=== PATIENT | female | born 2000 ===

== ENCOUNTER 2023-12-04 13:14 | Emergency (ER) | payer OTHER ==
[~2023-12-04] VITALS: Ht 162.6 cm; Wt 81.4 kg
[2023-12-04 13:20] VITALS: TEMP 98.1
[2023-12-04] MEDS ORDERED: NS 1,000 ML IV ONE (14:15)
[2023-12-04 14:23] LABS: BASO % 0.2 % (0.0-2.0); EOS # 0.1 K/mm3 (0.0-0.7); EOS % 0.8 % (0.0-4.0); GRAN # 6.7 K/mm3 (1.4-6.5); GRAN % 65.4 % (42.2-75.2); HEMATOCRIT 40.7 % (37.0-47.0); HEMOGLOBIN 13.7 g/dl (12.5-16.0); LYMPH # 2.7 K/mm3 (1.2-3.4); LYMPH % 26.1 % (20.0-51.0); MEAN CELL VOLUME 89 fl (80.0-100.0); MEAN CORPUSCULAR HEMOGLOBIN 30 pg (27-31); MEAN CORPUSCULAR HGB CONC 34 g/dl (33.0-37.0); MONO # 0.7 K/mm3 (0.1-0.6); PLATELET COUNT 316 K/mm3 (130-400); RED BLOOD COUNT 4.58 M/mm3 (4.10-5.30); REDCELL DISTRIBUTION WIDTH-CV 12.6 % (11.5-14.5)
[2023-12-04 14:39] LABS: ALANINE AMINOTRANSFERASE 19 U/L (0-55); ALBUMIN 3.7 g/dL (3.5-5.0); ALKALINE PHOSPHATASE 114 U/L (40-150); ANION GAP 12 mmol/L (7-16); AST,SGOT 15 U/L (5-34); BILIRUBIN,TOTAL 0.2 mg/dL (0.2-1.2); BLOOD UREA NITROGEN 14 mg/dL (7-19); CALCIUM 8.6 mg/dL (8.4-10.2); CHLORIDE 106 mEq/L (98-107); CREATININE, serum 0.69 mg/dL (0.57-1.11); GLUCOSE 136 mg/dL (70-99); MAGNESIUM 1.7 mg/dL (1.6-2.6); SODIUM 137 mEq/L (136-145); TOTAL PROTEIN 7.5 g/dl (6.2-8.1)
[2023-12-04 14:59] LABS: TSH w REFLEX 1.406 uIU/mL (0.350-4.940)
[2023-12-04 15:08] LABS: TROPONIN-I < 0.010 ng/mL (0.00-0.033)
[2023-12-04 15:58] VITALS: BP 108/73; PULSE 105
== END 2023-12-04 15:52 | disposition home or self-care (01) ==
LOC: COL.ER 13:14
PROVIDERS: Emergency Medicine
DX: R00.0 Tachycardia, unspecified (principal); Z79.3 Long term (current) use of hormonal contraceptives
CPT/HCPCS: J7030